=== PATIENT | female | born 1980 | race Caucasian/White ===

== ENCOUNTER → 2021-01-09 | Outpatient (CLI) | payer OTHER, SELFPAY ==
[2021-01-09 10:58] VITALS: BMI 34.7
[2021-01-13 04:06] LABS: Chlamydia By Nucleic Acid AMP Negative (Negative)
[2021-01-16 14:58] LABS: Gonococcus By Nucleic Acid AMP Negative (Negative)
[2021-01-21 15:42] LABS: HPV APTIMA, High Risk Negative (Negative)
== END | disposition home or self-care (01) ==
PROVIDERS: Referring Provider Obstetrics & Gynecology; Visit Provider Obstetrics & Gynecology
DX: Z12.4 Encounter for screening for malignant neoplasm of cervix (principal); Z11.3 Encounter for screening for infections with a predominantly sexual mode of transmission
CPT/HCPCS: 87491; 87591; 87624; 88175; G0145